=== PATIENT | female | born 1935 | race Caucasian/White ===

== ENCOUNTER 2022-09-08 16:05 | Inpatient (IN) | payer BC, MEDICARE ==
[2022-09-08 17:15] LABS: Basophils % (A) 0 %; Eosinophils # (A) 0.1 k/uL (0-0.7); Eosinophils % (A) 1 %; HCT 43.2 % (34.0-46.0); HGB 14.3 gm/dL (11.4-16.0); Lymphocytes # (A) 2.4 k/uL (1.0-4.8); Lymphocytes % (A) 44 %; MCH 30.7 pg (25.0-35.0); MCV 92.8 fL (80.0-100.0); Mean Platelet Volume 8.4; Monocytes # (A) 0.2 k/uL (0-1.0); Monocytes % (A) 5 %; Neutrophils # (A) 2.5 k/uL (1.3-7.7); Neutrophils % (A) 47 %; Platelet Count 166 k/uL (150-450); RBC 4.66 m/uL (3.80-5.40); RDW 12.8 % (11.5-15.5); WBC 5.3 k/uL (3.8-10.6)
--- NOTE | 2022-09-08 17:20 | XR ---
EXAMINATION TYPE: XR chest 2V DATE OF EXAM: 09/08/2022 5:08 PM COMPARISON: None TECHNIQUE: XR chest 2V Frontal and lateral views of the chest. CLINICAL INDICATION:Female, 87 years old with history of altered mental status; FINDINGS: Lungs/Pleura: There is flattening of the diaphragm with increased lucency of the lungs. No evidence o f pneumothorax, pleural effusion or focal consolidation. Pulmonary vascularity: Unremarkable. Heart/mediastinum: Cardiomediastinal silhouette is unremarkable. Musculoskeletal: No acute osseous pathology. IMPRESSION: 1. No acute cardiopulmonary disease process. 2. COPD changes.
[2022-09-08 17:21] LABS: ALT 31 U/L (4-34); AST 29 U/L (14-36); African American GFR (CKD) >90 (>60 ml/min/1.73 sqM); Albumin 4.9 g/dL (3.5-5.0); Alkaline Phosphatase 81 U/L (38-126); Anion Gap 10 mmol/L; Blood Urea Nitrogen 8 mg/dL (7-17); Calcium 9.6 mg/dL (8.4-10.2); Carbon Dioxide 23 mmol/L (22-30); Chloride 106 mmol/L (98-107); Glucose 118 mg/dL (74-99); Non-African American GFR(CKD) 86 (>60 ml/min/1.73 sqM); Potassium 4.5 mmol/L (3.5-5.1); Sodium 139 mmol/L (137-145); Total Protein 8.2 g/dL (6.3-8.2)
[2022-09-08 17:33] LABS: Glucose,Whole Blood 105 mg/dL (70-110)
--- NOTE | 2022-09-08 17:40 | CT ---
EXAMINATION TYPE: CT brain wo con CT DLP: 1099.4 mGycm, Automated exposure control for dose reduction was used. DATE OF EXAM: 09/08/2022 5:27 PM COMPARISON: None. CLINICAL INDICATION:Female, 87 years old with history of Altered mental status, AMS TECHNIQUE: Brain: Axial CT images of the brain were obtained with coronal and sagittal reformats created and rev iewed. Contrast used: None. Oral contrast used: None. FINDINGS: Brain: Extra-axial spaces: No abnormal extra-axial fluid collections. Ventricular system: Within normal limits Cerebral parenchyma: Left frontal lobe asymmetric white matter changes which which to pleura the bojorquez -white junction of the inferior left frontal lobe. No acute intraparenchymal hemorrhage or mass effec t. The remainder of the bojorquez-white junctions are well differentiated. Cerebellum: Unremarkable. Mass effect: No evidence of midline shift. Intracranial vasculature: Atherosclerotic calcifications of the intracranial vessels. Soft tissues: Normal. Calvarium/osseous structures: No depressed skull fracture. Paranasal sinuses and mastoid air cells: Mild scattered paranasal sinus disease. Visualized orbits: Orbital contents are intact. IMPRESSION: Acute/subacute left frontal lobe inferior CVA. No evidence for hemorrhagic conversion.
[2022-09-08 18:09] LABS: Appearance,Urine Clear (Clear); Bacteria,Urine Rare /hpf; Bilirubin,Urine Negative (Negative); Blood,Urine Negative (Negative); Color,Urine Colorless; Glucose,Urine (UA) Negative (Negative); Ketones,Urine Negative (Negative); Leukocyte Esterase,Urine Trace (Negative); Nitrite,Urine Negative (Negative); PH, Urine 5.5 (5.0-8.0); Protein,Urine Negative (Negative); RBC,Urine 1 /hpf (0-5); Specific Gravity,Urine 1.002 (1.001-1.035); Squamous Epithelial Cell,Urine <1 /hpf (0-4); Urobilinogen,Urine <2.0 mg/dL (<2.0); WBC,Urine 1 /hpf (0-5)
[2022-09-08] MEDS ORDERED: ASPIRIN 81 MG PO STA (19:08)
--- NOTE | 2022-09-08 19:19 | ED ---
Altered Mental Status HPI - General Chief Complaint: Altered Mental Status Stated Complaint: poss mini stroke/sent from doctors Time Seen by Provider: 09/08/22 16:28 Source: patient, family Mode of arrival: wheelchair Limitations: altered mental status - History of Present Illness Initial Comments: This patient is an 87-year-old woman here with her daughter, they state that she has going back about 4-5 days now been a little bit confused and sometimes having trouble with word finding, using the wrong word and a sentence. Patient denies focal weakness or numbness. No change in vision or speech or swallowing. Patient denies pain. No fever or chills. No other symptoms. MD Complaint: confusion Onset/Timin -: days(s) Severity: mild Consistency of Symptoms: waxing and waning Associated Symptoms: denies other symptoms - Related Data Home Medications Medication Instructions Recorded Confirmed Dorzolamide HCl/Pf [Dorzolamide 2% 1 drop BOTH EYES BID 09/08/22 09/08/22 Eye Drop] Latanoprost/Pf [Latanoprost 0.005% 1 drop BOTH EYES HS 09/08/22 09/08/22 Eye Drop] Metoprolol Succinate (ER) [Toprol 50 mg PO DAILY 09/08/22 09/08/22 Xl] Allergies Allergy/AdvReac Type Severity Reaction Status Date / Time No Known Allergies Allergy Verified 09/08/22 16:48 Review of Systems ROS Statement: Those systems with pertinent positive or pertinent negative responses have been documented in the HPI. ROS Other: All systems not noted in ROS Statement are negative. Constitutional: Denies: fever, chills, weakness Eyes: Denies: vision change ENT: Denies: hearing loss Respiratory: Denies: cough, dyspnea Cardiovascular: Denies: chest pain, palpitations, syncope Gastrointestinal: Denies: abdominal pain, nausea, vomiting, diarrhea Genitourinary: Denies: dysuria, hematuria Musculoskeletal: Denies: back pain Skin: Denies: rash Neurological: Reports: confusion. Denies: headache, weakness, numbness, paresthesias Hematological/Lymphatic: Denies: easy bleeding Past Medical History Past Medical History: Cancer, Hypertension History of Any Multi-Drug Resistant Organisms: None Reported Additional Past Surgical History / Comment(s): rt masectomy Past Psychological History: No Psychological Hx Reported Smoking Status: Never smoker Past Alcohol Use History: None Reported Past Drug Use History: None Reported General Exam Limitations: altered mental status General appearance: alert, in no apparent distress Head exam: Present: atraumatic, normocephalic Eye exam: Present: normal appearance, PERRL, EOMI. Absent: scleral icterus, conjunctival injection, nystagmus ENT exam: Present: normal oropharynx Neck exam: Present: normal inspection, full ROM. Absent: tenderness Respiratory exam: Present: normal lung sounds bilaterally. Absent: respiratory distress, wheezes, rales, rhonchi, stridor Cardiovascular Exam: Present: regular rate, normal rhythm, normal heart sounds. Absent: systolic murmur, diastolic murmur, rubs, gallop GI/Abdominal exam: Present: soft. Absent: distended, tenderness, guarding, rebound, rigid, mass Extremities exam: Present: normal inspection, normal capillary refill. Absent: pedal edema, calf tenderness Back exam: Present: normal inspection. Absent: CVA tenderness (R), CVA tenderness (L) Neurological exam: Present: alert, CN II-XII intact. Absent: oriented X3 (Patient is oriented to person and place but did not recall the exact date), motor sensory deficit Skin exam: Present: warm, dry, intact, normal color. Absent: rash Course Vital Signs 09/08/22 09/08/22 09/08/22 16:15 16:19 17:54 Temperature 98.0 F Pulse Rate 68 60 60 Respiratory 20 16 16 Rate Blood Pressure 189/87 195/103 185/92 O2 Sat by Pulse 98 98 97 Oximetry 09/08/22 09/08/22 09/08/22 18:00 19:00 20:00 Temperature Pulse Rate 63 68 62 Respiratory 18 20 16 Rate Blood Pressure 177/110 177/89 188/73 O2 Sat by Pulse 99 96 96 Oximetry 09/08/22 09/08/22 09/08/22 20:45 21:00 22:55 Temperature 97.9 F Pulse Rate 61 66 78 Respiratory 16 16 16 Rate Blood Pressure 188/73 188/73 189/74 O2 Sat by Pulse 97 97 98 Oximetry Medical Decision Making - Medical Decision Making Patient is an 87-year-old woman brought to have evaluation after a number of days of disorientation/confusion and difficulties with word finding. There does appear to be subacute/acute ischemic stroke. Patient will be admitted with neurology consultation. Patient is of course outside of the TPA window and no lesion on CT angiogram. - Lab Data Result diagrams: 09/08/22 16:55 09/08/22 16:55 Lab Results 09/08/22 09/08/22 09/08/22 Range/Units 16:55 16:55 16:55 WBC 5.3 (3.8-10.6) k/uL RBC 4.66 (3.80-5.40) m/uL Hgb 14.3 (11.4-16.0) gm/dL Hct 43.2 (34.0-46.0) % MCV 92.8 (80.0-100.0) fL MCH 30.7 (25.0-35.0) pg MCHC 33.0 (31.0-37.0) g/dL RDW 12.8 (11.5-15.5) % Plt Count 166 (150-450) k/uL MPV 8.4 Neutrophils % 47 % Lymphocytes % 44 % Monocytes % 5 % Eosinophils % 1 % Basophils % 0 % Neutrophils # 2.5 (1.3-7.7) k/uL Lymphocytes # 2.4 (1.0-4.8) k/uL Monocytes # 0.2 (0-1.0) k/uL Eosinophils # 0.1 (0-0.7) k/uL Basophils # 0.0 (0-0.2) k/uL Sodium 139 (137-145) mmol/L Potassium 4.5 (3.5-5.1) mmol/L Chloride 106 (98-107) mmol/L Carbon Dioxide 23 (22-30) mmol/L Anion Gap 10 mmol/L BUN 8 (7-17) mg/dL Creatinine 0.54 (0.52-1.04) mg/dL Est GFR (CKD-EPI)AfAm >90 (>60 ml/min/1.73 sqM) Est GFR (CKD-EPI)NonAf 86 (>60 ml/min/1.73 sqM) Glucose 118 H (74-99) mg/dL POC Glucose (mg/dL) (70-110) mg/dL POC Glu Hospital Ward Clerk ID Estimated Ave Glu mg/dL Hemoglobin A1c (0.0-6.0) % Calcium 9.6 (8.4-10.2) mg/dL Total Bilirubin 1.0 (0.2-1.3) mg/dL AST 29 (14-36) U/L ALT 31 (4-34) U/L Alkaline Phosphatase 81 (38-126) U/L Troponin I 0.047 H* (0.000-0.034) ng/mL Total Protein 8.2 (6.3-8.2) g/dL Albumin 4.9 (3.5-5.0) g/dL Triglycerides (0.00-149.00) mg/dL Cholesterol (0.00-200.00) mg/dL LDL Cholesterol, Calc (0.0-131.0) mg/dL VLDL Cholesterol, Calc (5.00-40.00) mg/dL HDL Cholesterol (40.00-60.00) mg/dL Cholesterol/HDL Ratio Ratio Urine Color Urine Appearance (Clear) Urine pH (5.0-8.0) Ur Specific Gifford (1.001-1.035) Urine Protein (Negative) Urine Glucose (UA) (Negative) Urine Ketones (Negative) Urine Blood (Negative) Urine Nitrite (Negative) Urine Bilirubin (Negative) Urine Urobilinogen (<2.0) mg/dL Ur Leukocyte Esterase (Negative) Urine RBC (0-5) /hpf Urine WBC (0-5) /hpf Ur Squamous Epith Cells (0-4) /hpf Urine Bacteria (None) /hpf 09/08/22 09/08/22 09/08/22 Range/Units 16:55 16:55 17:25 WBC (3.8-10.6) k/uL RBC (3.80-5.40) m/uL Hgb (11.4-16.0) gm/dL Hct (34.0-46.0) % MCV (80.0-100.0) fL MCH (25.0-35.0) pg MCHC (31.0-37.0) g/dL RDW (11.5-15.5) % Plt Count (150-450) k/uL MPV Neutrophils % % Lymphocytes % % Monocytes % % Eosinophils % % Basophils % % Neutrophils # (1.3-7.7) k/uL Lymphocytes # (1.0-4.8) k/uL Monocytes # (0-1.0) k/uL Eosinophils # (0-0.7) k/uL Basophils # (0-0.2) k/uL Sodium (137-145) mmol/L Potassium (3.5-5.1) mmol/L Chloride (98-107) mmol/L Carbon Dioxide (22-30) mmol/L Anion Gap mmol/L BUN (7-17) mg/dL Creatinine (0.52-1.04) mg/dL Est GFR (CKD-EPI)AfAm (>60 ml/min/1.73 sqM) Est GFR (CKD-EPI)NonAf (>60 ml/min/1.73 sqM) Glucose (74-99) mg/dL POC Glucose (mg/dL) 105 (70-110) mg/dL POC Glu [facility] Ward Clerk [place] [address] Est[address] Glu mg/dL 148 Hemoglobin A1c 6.8 H (0.0-6.0) % Calcium (8.4-10.2) mg/dL Total Bilirubin (0.2-1.3) mg/dL AST (14-36) U/L ALT (4-34) U/L Alkaline Phosphatase (38-126) U/L Troponin I (0.000-0.034) ng/mL Total Protein (6.3-8.2) g/dL Albumin (3.5-5.0) g/dL Triglycerides 107.00 (0.00-149.00) mg/dL Cholesterol 217.00 H (0.00-200.00) mg/dL LDL Cholesterol, Calc 149.4 H (0.0-131.0) mg/dL VLDL Cholesterol, Calc 21.40 (5.00-40.00) mg/dL HDL Cholesterol 46.20 (40.00-60.00) mg/dL Cholesterol/HDL Ratio 4.70 Ratio Urine Color Urine Appearance (Clear) Urine pH (5.0-8.0) Ur Specific Gifford (1.001-1.035) Urine Protein (Negative) Urine Glucose (UA) (Negative) Urine Ketones (Negative) Urine Blood (Negative) Urine Nitrite (Negative) Urine Bilirubin (Negative) Urine Urobilinogen (<2.0) mg/dL Ur Leukocyte Esterase (Negative) Urine RBC (0-5) /hpf Urine WBC (0-5) /hpf Ur Squamous Epith Cells (0-4) /hpf Urine Bacteria (None) /hpf 09/08/22 Range/Units 17:57 WBC (3.8-10.6) k/uL RBC (3.80-5.40) m/uL Hgb (11.4-16.0) gm/dL Hct (34.0-46.0) % MCV (80.0-100.0) fL MCH (25.0-35.0) pg MCHC (31.0-37.0) g/dL RDW (11.5-15.5) % Plt Count (150-450) k/uL MPV Neutrophils % % Lymphocytes % % Monocytes % % Eosinophils % % Basophils % % Neutrophils # (1.3-7.7) k/uL Lymphocytes # (1.0-4.8) k/uL Monocytes # (0-1.0) k/uL Eosinophils # (0-0.7) k/uL Basophils # (0-0.2) k/uL Sodium (137-145) mmol/L Potassium (3.5-5.1) mmol/L Chloride (98-107) mmol/L Carbon Dioxide (22-30) mmol/L Anion Gap mmol/L BUN (7-17) mg/dL Creatinine (0.52-1.04) mg/dL Est GFR (CKD-EPI)AfAm (>60 ml/min/1.73 sqM) Est GFR (CKD-EPI)NonAf (>60 ml/min/1.73 sqM) Glucose (74-99) mg/dL POC Glucose (mg/dL) (70-110) mg/dL POC Glu Hospital Ward Clerk ID Estimated Ave Glu mg/dL Hemoglobin A1c (0.0-6.0) % Calcium (8.4-10.2) mg/dL Total Bilirubin (0.2-1.3) mg/dL AST (14-36) U/L ALT (4-34) U/L Alkaline Phosphatase (38-126) U/L Troponin I (0.000-0.034) ng/mL Total Protein (6.3-8.2) g/dL Albumin (3.5-5.0) g/dL Triglycerides (0.00-149.00) mg/dL Cholesterol (0.00-200.00) mg/dL LDL Cholesterol, Calc (0.0-131.0) mg/dL VLDL Cholesterol, Calc (5.00-40.00) mg/dL HDL Cholesterol (40.00-60.00) mg/dL Cholesterol/HDL Ratio Ratio Urine Color Colorless Urine Appearance Clear (Clear) Urine pH 5.5 (5.0-8.0) Ur Specific Gifford 1.002 (1.001-1.035) Urine Protein Negative (Negative) Urine Glucose (UA) Negative (Negative) Urine Ketones Negative (Negative) Urine Blood Negative (Negative) Urine Nitrite Negative (Negative) Urine Bilirubin Negative (Negative) Urine Urobilinogen <2.0 (<2.0) mg/dL Ur Leukocyte Esterase Trace H (Negative) Urine RBC 1 (0-5) /hpf Urine WBC 1 (0-5) /hpf Ur Squamous Epith Cells <1 (0-4) /hpf Urine Bacteria Rare H (None) /hpf - EKG Data -: EKG Interpreted by Me EKG shows normal: sinus rhythm, axis (Normal), intervals (Normal), QRS complexes (Normal), ST-T waves (Normal) Rate: normal (Rate 61 bpm) Interpretation: normal EKG Critical Care Time Critical Care Time: Yes (30 minutes) Disposition Clinical Impression: Acute ischemic stroke Disposition: ADMITTED IP TO THIS HOSP Condition: Fair Is patient prescribed a controlled substance at d/c from ED?: No
--- NOTE | 2022-09-08 20:36 | CT ---
EXAMINATION TYPE: CT angio head neck CT DLP: 382.7 mGycm, Automated exposure control for dose reduction was used. DATE OF EXAM: 09/08/2022 8:20 PM COMPARISON: . CLINICAL INDICATION:Female, 87 years old with history of Neuro deficit, acute, stroke suspected; [facility], ams, sent by PCP TECHNIQUE: Axially acquired helical CT angiogram of the head and neck was obtained with contrast. Axi al images are supplemented with 3D reconstructions which [facility] NASCET criteria used. Contrast used:65ML mL of Isovue 370 with IV Contrast, Oral contrast used: None. FINDINGS: CTA HEAD: No evidence of acute intracranial hemorrhage, mass effect, or midline shift. The ventricles, sulci, a nd cisterns are unremarkable. The visualized portions of the internal carotid arteries, middle cerebral arteries, anterior cerebral arteries, and posterior cerebral arteries are patent. Atherosclerotic calcified lesions of the intracranial or internal carotid arteries. The basilar and vertebral arteries are patent. Bilaterally aphakia CTA NECK: Right Carotid System: The common carotid artery and external carotid artery are patent. The carotid bifurcation demonstrate s calcified plaque without hemodynamically significant stenosis. The remaining portions of the commercial internship al carotid artery demonstrate normal size without significant narrowing. Left Carotid System: The common carotid artery and external carotid artery are patent. The carotid bifurcation demonstrate s calcified plaque without hemodynamically significant stenosis. The remaining portions of the commercial internship al carotid artery demonstrate normal size without significant narrowing. Vertebral arteries are patent without evidence hemodynamically significant stenosis. There is a three-vessel aortic arch. The origins of the great vessels are patent. No evidence of hemo dynamically significant stenosis. IMPRESSION: 1. No evidence of dissection of the cervical internal carotid arteries or vertebral arteries or any e vidence of significant stenosis at the carotid bifurcations. 2. No evidence of intracranial high-grade stenosis or intracranial aneurysm.
[2022-09-08] MEDS: SODIUM CHLORIDE 0.9% 1,000 ML IV SCH (21:23)
[2022-09-08] MEDS: FAMOTIDINE 20 MG TAB PO SCH (21:23)
[2022-09-08] MEDS: DOCUSATE 100 MG CAP PO SCH (23:35)
[2022-09-08 23:37] LABS: Glucose,Whole Blood 98 mg/dL (70-110)
[2022-09-09 01:58] LABS: Glucose,Whole Blood 114 mg/dL (70-110)
[2022-09-09 06:04] LABS: Glucose,Whole Blood 124 mg/dL (70-110)
[2022-09-09] MEDS ORDERED: DEXTROSE 50% SYRINGE 50 ML IVP PRN ×2 (08:42)
[2022-09-09 08:53] LABS: LDL Cholesterol,Calculated 149.4 mg/dL (0.0-131.0)
[2022-09-09] MEDS: FAMOTIDINE 20 MG TAB PO SCH ×2 (09:34→21:04)
[2022-09-09] MEDS: DOCUSATE 100 MG CAP PO SCH ×3 (09:34→23:58)
[2022-09-09] MEDS: PANTOPRAZOLE 40 MG/10 ML VIAL IVP SCH (09:34)
[2022-09-09] MEDS: CLOPIDOGREL 75 MG TAB PO SCH (09:34)
[2022-09-09] MEDS: ATORVASTATIN 40 MG TAB PO SCH (09:34)
--- NOTE | 2022-09-09 10:48 | P.HPIM ---
History of Present Illness H&P Date: 09/09/22 Chief Complaint: Increased confusion, word searching This is a pleasant 87-year-old female with past medical history of hypertension, minimal memory impairment ,reporting nearly diagnosed hypercholesterol and diabetes diet managed-in June 2022, presented to the ER with complaints of increased confusion, word searching over the last few days. Denies prior history of CVA/TIA. Denies any slurred speech, facial droop or muscle weakness. Denies numbness or tingling. Denies lightheadedness dizziness or focal deficits. Denies syncope. Denies chest pain, palpitations or shortness of breath. Yesterday, urine sample at PCP's reported as negative. Patient presented to the ER for further workup. Brain CT reported acute/subacute left frontal lobe inferior CVA with no evidence for hemorrhagic conversion. Patient was outside the window for TPA. Angiography CT reported no evidence of dissection of the cervical internal carotid arteries are 2 arteries or any evidence of significant stenosis of the carotid bifurcations, no evidence of intracranial high-grade stenosis or intracranial aneurysm. Chest x-ray report no acute cardiopulmonary process, COPD changes. Patient denies history of nicotine dependence. EKG reported sinus rhythm, troponins 0.047, 0.048, 0.045. Afebrile, maintaining O2 sats in the high 90s on room air. Hematology, chemistry panels unremarkable with glucose 118-124, triglycerides 107, cholesterol 217, LDL 149.4, HDL 46.2. UA negative. Review of Systems ROS Statement: Those systems with pertinent positive or pertinent negative responses have been documented in the HPI. ROS Other: All systems not noted in ROS Statement are negative. Past Medical History Past Medical History: Cancer, Hypertension History of Any Multi-Drug Resistant Organisms: None Reported Additional Past Surgical History / Comment(s): rt masectomy Past Anesthesia/Blood Transfusion Reactions: No Reported Reaction Past Psychological History: No Psychological Hx Reported Smoking Status: Never smoker Past Alcohol Use History: None Reported Past Drug Use History: None Reported Medications and Allergies Home Medications Medication Instructions Recorded Confirmed Type Dorzolamide HCl/Pf [Dorzolamide 2% 1 drop BOTH EYES BID 09/08/22 09/08/22 History Eye Drop] Latanoprost/Pf [Latanoprost 0.005% 1 drop BOTH EYES HS 09/08/22 09/08/22 History Eye Drop] Metoprolol Succinate (ER) [Toprol 50 mg PO DAILY 09/08/22 09/08/22 History Xl] Allergies Allergy/AdvReac Type Severity Reaction Status Date / Time No Known Allergies Allergy Verified 09/08/22 16:48 Physical Exam Vitals: Vital Signs Temp Pulse Pulse Resp BP BP Pulse Ox 09/09/22 03:28 97.6 F 68 16 132/78 98 09/08/22 23:36 97.4 F L 63 16 176/85 97 09/08/22 23:20 16 09/08/22 22:55 78 16 189/74 98 09/08/22 21:00 66 16 188/73 97 09/08/22 20:45 97.9 F 61 16 188/73 97 09/08/22 20:00 62 16 188/73 96 09/08/22 19:00 68 20 177/89 96 09/08/22 18:00 63 18 177/110 99 09/08/22 17:54 60 16 185/92 97 09/08/22 16:19 60 16 195/103 98 09/08/22 16:15 98.0 F 68 20 189/87 98 Intake and Output 09/08/22 09/09/22 09/09/22 22:59 06:59 14:59 Other: Voiding Method Toilet Weight 68.039 kg 69 kg PHYSICAL EXAM: VITAL SIGNS: [As above] GENERAL: Sitting up at side of bed, no acute distress. Minimally conversing. Daughter at bedside giving full details. HEENT: Conjunctivae normal. eyes normal. MMM. NECK: Supple, No JVD. No thyroid enlargement. No LNs CARDIOVASCULAR: S1, S2 regular.. No murmur RESPIRATION: Breath sounds diminished in the bases. No rhonchi or crackles. No bronchial breathing. ABDOMEN: Soft, nontender . No guarding. no masses palpable. No ascites, No hepatosplenomegaly.Bowel sounds heard. LEGS: No edema. no swelling PSYCHIATRY: Alert and oriented X3, mood and affect normal. NERVOUS SYSTEM: Cranial N 2-12 grossly normal. Moves all 4 limbs. No focal deficits. No facial droop, no lateralizing weakness .Strength and sensation grossly intact.. Skin: no lesions, no rash Joints: No active swelling. No inflammation. Lymphatic system. No LN neck axilla or groin. Results CBC & Chem 7: 09/08/22 16:55 09/08/22 16:55 Labs: Abnormal Lab Results - Last 24 Hours (Table) 09/08/22 09/08/22 09/08/22 Range/Units 16:55 16:55 17:57 Glucose 118 H (74-99) mg/dL POC Glucose (mg/dL) (70-110) mg/dL Troponin I 0.047 H* (0.000-0.034) ng/mL Ur Leukocyte Esterase Trace H (Negative) Urine Bacteria Rare H (None) /hpf 09/08/22 09/09/22 09/09/22 Range/Units 22:00 00:01 01:56 Glucose (74-99) mg/dL POC Glucose (mg/dL) 114 H (70-110) mg/dL Troponin I 0.048 H* 0.045 H* (0.000-0.034) ng/mL Ur Leukocyte Esterase (Negative) Urine Bacteria (None) /hpf 09/09/22 Range/Units 06:02 Glucose (74-99) mg/dL POC Glucose (mg/dL) 124 H (70-110) mg/dL Troponin I (0.000-0.034) ng/mL Ur Leukocyte Esterase (Negative) Urine Bacteria (None) /hpf Thrombosis Risk Factor Assmnt - Choose All That Apply Any of the Below Risk Factors Present?: No Other congenital or acquired thrombophilia - If yes, enter type in comment: No Each Risk Factor Represents 5 Points: Stroke (< 1 month) Thrombosis Risk Factor Assessment Total Risk Factor Score: 5 Thrombosis Risk Factor Assessment Level: High Risk Assessment and Plan Assessment: 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 Hypertension Hyperlipidemia Diabetes mellitus reported new diagnosis as of June 2022, controlled on diet only. A1c pending Plan: Continue on current medication regime ,monitoring and symptomatic treatment. Maintain aspirin, statin, Plavix. PPI ordered for GI prophylaxis. Neurology consult in place, recommendations pending. NovoLog sliding scale, A1c ordered. The impression and plan of care has been dictated as directed. : I performed a history and examination of this patient, discussed the same with the dictator. I agree with the dictator's note ,documented as a scribe. Any additional findings or plans will be noted.
[2022-09-09] MEDS: DORZOLAMIDE HCL 2% DROPS 10 ML BTL BOTH EYES SCH ×2 (10:50→21:04)
[2022-09-09 11:51] LABS: Glucose,Whole Blood 151 mg/dL (70-110)
--- NOTE | 2022-09-09 14:24 | P.CNNES ---
History of Present Illness Consult date: 09/09/22 Requesting physician: Geovany Camp Reason for Consult: Acute ischemic stroke History of Present Illness: Patient is a 87-year-old right-handed female came to the hospital yesterday at 4:05 PM for altered mental status. Patient's daughters were present, who provided the history. Patient herself does not know why she came to the hospital. Patient's daughter mentions that since last 3 days, patient has been seeing something which is not right. As an example, patient wanted to eat peanut butter, but instead she said mustard. She had slow reaction time to answer question, not as quick as usual. The family asked about who was at present, patient said "Keli" which is completely incorrect. She also said something about a total, which is out of this is 4 years. Family got concerned, talk to her primary physician, who thought patient may have a UTI. A urine was checked, but that was normal. Therefore she was referred to go to the ER. There is no report of slurred speech, facial droop, problem with the balance. She does walk with a stooped, but his baseline. She does not use any assistive device. Patient denies any visual symptoms. Denies any focal symptoms involving extremities like numbness tingling or weakness. Denies any headache. No trauma. Vital signs on arrival blood pressure 189/87, which went up to 195/103, pulse rate is 68 temperature 98.0. Blood test shows normal CBC, normal CMP, troponin is elevated 0.047, UA is negative. CT head revealed acute/subacute left frontal lobe inferior CVA. No evidence of hemorrhagic conversion. I personally reviewed CT head, agree with the findings. The significant small vessel disease. Left frontal hypointensity probably due to subacute ischemia, although mass lesion less likely. Chest x-ray showed no active cardio pulmonary disease. COPD changes. Patient has history of hypertension, recently diagnosed diabetes in June 2022, but not on medication. No previous history of strokes or TIA. She does not smoke, does not drink alcohol. Home medications include eyedrops and metoprolol for blood pressure only. Does not take any antiplatelet medication. Patient admits to weight loss 10 pounds, intentionally. Patient has slight urinary incontinence, uses pads sometimes. Her memory otherwise is fine, with no concerned about dementia. Her hearing is decreased. Review of Systems Constitutional: Denies chills, Denies fever Eyes: denies blurred vision, denies pain Ears: bilateral: decreased hearing, deny: earache Ears, nose, mouth and throat: Denies headache, Denies sore throat Cardiovascular: Denies chest pain, Denies shortness of breath Respiratory: Denies cough, Denies excessive sputum Gastrointestinal: Denies abdominal pain, Denies diarrhea, Denies nausea, Denies vomiting Genitourinary: Reports stress incontinence, Denies dysuria, Denies hematuria Musculoskeletal: Denies low back pain, Denies myalgias, Denies neck pain Integumentary: Denies pruritus, Denies rash Neurological: Reports as per HPI Psychiatric: Denies anxiety, Denies depression Endocrine: Reports weight change, Denies fatigue Past Medical History Past Medical History: Cancer, Hypertension History of Any Multi-Drug Resistant Organisms: None Reported Additional Past Surgical History / Comment(s): rt masectomy Past Anesthesia/Blood Transfusion Reactions: No Reported Reaction Past Psychological History: No Psychological Hx Reported Smoking Status: Never smoker Past Alcohol Use History: None Reported Past Drug Use History: None Reported Medications and Allergies Home Medications Medication Instructions Recorded Confirmed Type Dorzolamide HCl/Pf [Dorzolamide 2% 1 drop BOTH EYES BID 09/08/22 09/08/22 History Eye Drop] Latanoprost/Pf [Latanoprost 0.005% 1 drop BOTH EYES HS 09/08/22 09/08/22 History Eye Drop] Metoprolol Succinate (ER) [Toprol 50 mg PO DAILY 09/08/22 09/08/22 History Xl] Allergies Allergy/AdvReac Type Severity Reaction Status Date / Time No Known Allergies Allergy Verified 09/08/22 16:48 Physical Examination - Vital Signs Vital Signs: Vital Signs Temp Pulse Pulse Resp BP BP Pulse Ox 09/09/22 09:02 96 09/09/22 03:28 97.6 F 68 16 132/78 98 09/08/22 23:36 97.4 F L 63 16 176/85 97 09/08/22 23:20 16 09/08/22 22:55 78 16 189/74 98 09/08/22 21:00 66 16 188/73 97 09/08/22 20:45 97.9 F 61 16 188/73 97 09/08/22 20:00 62 16 188/73 96 09/08/22 19:00 68 20 177/89 96 09/08/22 18:00 63 18 177/110 99 09/08/22 17:54 60 16 185/92 97 09/08/22 16:19 60 16 195/103 98 09/08/22 16:15 98.0 F 68 20 189/87 98 Intake and Output 09/08/22 09/09/22 09/09/22 22:59 06:59 14:59 Intake Total 240 Balance 240 Intake: Oral 240 Other: Voiding Method Toilet Weight 68.039 kg 69 kg Patient is an elderly female, very pleasant, in no acute distress. Patient is alert awake oriented to time place and person. Speech and language functions are normal. Patient can name and repeat very well. No aphasia or dysarthria. Attention, concentration and fund of knowledge is adequate. On cranial nerve examination, pupils are equal, round and reacting to light, visual mendez are full on confrontation, with no neglect on double simultaneous stimulation. Extraocular muscles are intact with no nystagmus. Face is symmetric, tongue protrudes to the midline. Palatal elevation and sensation normal, hearing and shoulder shrug normal, facial sensation normal. On muscle strength testing, there is no pronator drift and the strength is normal in arms and legs distally and proximally. Deep tendon reflexes are symmetric 1+ all over and plantars downgoing bilaterally. Sensory to touch is equal with no neglect on double simultaneous stimulation. Cerebellar function showed no ataxia for [id number] testing. No dysdiadochokinesia. No ataxia for [id number]-[id number] testing on either side. Tone a nd bulk of muscles normal. Gait deferred.. On general examination, there is no carotid bruit or murmur, S1-S2 audible. Chest is clear on consultation. Abdomen is soft nontender. No organomegaly, bowel sounds present. Peripheral pulses are present. No edema. Results - Laboratory Findings CBC and BMP: 09/08/22 16:55 09/08/22 16:55 Abnormal Lab Findings: Abnormal Labs 09/08/22 09/08/22 09/08/22 16:55 16:55 16:55 Glucose 118 H POC Glucose (mg/dL) Troponin I 0.047 H* Cholesterol 217.00 H LDL Cholesterol, Calc 149.4 H Ur Leukocyte Esterase Urine Bacteria 09/08/22 09/08/22 09/09/22 17:57 22:00 00:01 Glucose POC Glucose (mg/dL) Troponin I 0.048 H* 0.045 H* Cholesterol LDL Cholesterol, Calc Ur Leukocyte Esterase Trace H Urine Bacteria Rare H 09/09/22 09/09/22 01:56 06:02 Glucose POC Glucose (mg/dL) 114 H 124 H Troponin I Cholesterol LDL Cholesterol, Calc Ur Leukocyte Esterase Urine Bacteria Assessment and Plan Assessment: * Probable subacute ischemic stroke involving left frontal region. * Hypertension * Diabetes, recently diagnosed in June 2022, currently not on medication * Hyperlipidemia Plan: * MRI of the brain without contrast, evaluate for acute CVA * 2-D echo with bubble study to rule out PFO * CTA head and neck showed: No evidence of dissection of the cervical internal carotid arteries or vertebral arteries or any evidence of significant stenosis at the carotid bifurcations. No evidence of intracranial high-grade stenosis or intracranial aneurysm. * Fasting a.m. lipid panel cholesterol 217, LDL 149, HDL 46 and triglycerides 107. Agree with starting Lipitor 40 mg daily. * Hemoglobin A1c 7.8 on 07/02/2022. Patient currently not on any medication for diabetes. Repeat A1c pending. Recommend optimize control of diabetes to target A1c <7.0 * Permissive hypertension for next 24-48 hours * Agree with starting DAP with aspirin 81 mg and Plavix 75 mg for 21 days, then stop Plavix and continue aspirin indefinitely. Patient did receive aspirin 324 mg in ER. * Close neuro checks. * Telemetry monitoring rule out any arrhythmia * DVT prophylaxis: Heparin 5000 units subcu every 8 hours * Neurology will continue ot follow. Thank you for the consult.
[2022-09-09] MEDS: INSULIN ASPART (NovoLOG) 100 UNIT/ML VIAL SQ SCH ×3 (15:44→21:04)
[2022-09-09 16:27] LABS: Glucose,Whole Blood 138 mg/dL (70-110)
[2022-09-09 20:20] LABS: Glucose,Whole Blood 154 mg/dL (70-110)
[2022-09-09] MEDS: SODIUM CHLORIDE 0.9% 1,000 ML IV SCH (21:03)
[2022-09-09] MEDS: LATANOPROST 0.005% OPHTH DROPS 2.5 ML BTL BOTH EYES SCH (21:04)
[2022-09-10 06:11] LABS: Glucose,Whole Blood 144 mg/dL (70-110)
[2022-09-10] MEDS: INSULIN ASPART (NovoLOG) 100 UNIT/ML VIAL SQ SCH ×4 (06:18→21:15)
[2022-09-10] MEDS: FAMOTIDINE 20 MG TAB PO SCH ×2 (08:35→21:15)
[2022-09-10] MEDS: CLOPIDOGREL 75 MG TAB PO SCH (08:35)
[2022-09-10] MEDS: PANTOPRAZOLE 40 MG/10 ML VIAL IVP SCH (08:35)
[2022-09-10] MEDS: ATORVASTATIN 40 MG TAB PO SCH (08:35)
[2022-09-10] MEDS ORDERED: ASPIRIN 81 MG PO SCH (09:00)
--- NOTE | 2022-09-10 11:16 | MR ---
EXAMINATION TYPE: MR brain wo con DATE OF EXAM: 09/10/2022 COMPARISON: CT brain 2 days ago HISTORY: CVA. Acute onset neurologic deficit 2 days ago. TECHNIQUE: Multiplanar, multisequence imaging of the brain and brainstem is performed without IV cont rast. FINDINGS: Diffusion weighted images demonstrate increased signal on diffusion-weighted images being isodense to hypodense and ADC mapping involving the left frontal lobe that area of concern on recent CT measurin g approximate 3.1 x 1.9 cm image 144 series 303. There is sulcal effacement and T2 hyperintense signa l. Findings correlate with CT and consistent with evolving acute/subacute infarct. No midline shift i s seen. There is mild to moderate ventricular and sulcal prominence. There is moderate to severe T2 hyperinte nsity in the deep and periventricular white matter. Midline structures demonstrate empty sella morphology. The craniocervical junction appears within no rmal limits. Normal vascular flow voids are present. Bilateral aphakia is redemonstrated. Visualized paranasal sinuses remain clear. IMPRESSION: Confirmation of evolving acute/subacute left frontal lobe infarct as suspected on recent CT. Background [id number] diffuse cerebral atrophy and moderate to advanced chronic small vesse l ischemic changes are noted. A Yellow level critical message alert has been initiated for Delio Garcia DO via the [facility] System on 09/10/2022 11:13 AM. This message alert has been sent to Delio Garcia DO vi a the preferences provided by the clinician for the receipt of Radiology Critical Findings. Message I D [id number].
--- NOTE | 2022-09-10 11:51 | CA ---
Transthoracic Echo Report Name: Leonora Chen Age: 87 Gender: F : 1935 Exam Date: 09/09/2022 14:15 Exam Location: [facility] Ht (in): 60 Wt (lb): 152 Ordering Physician: Hue Goss MD Attending/Referring Phys: Hob Grinder Preeti Gerardo RDCS Procedure CPT: Indications: CVA Cardiac Hx: Technical Quality: Contrast 1: Total Dose (mL): Contrast 2: Total Dose (mL): MEASUREMENTS (Male / Female) Normal Values 2D ECHO LV Diastolic Diameter PLAX 2.7 cm 4.2 - 5.9 / 3.9 - 5.3 cm LV Systolic Diameter PLAX 1.8 cm IVS Diastolic Thickness 1.4 cm 0.6 - 1.0 / 0.6 - 0.9 cm LVPW Diastolic Thickness 1.1 cm 0.6 - 1.0 / 0.6 - 0.9 cm LV Relative Wall Thickness 0.9 RV Internal Dim ED PLAX 3.4 cm LVOT Diameter 1.3 cm LA Volume 78.2 cm??? 18 - 58 / 22 - 52 cm??? DOPPLER AV Peak Velocity 181.1 cm/s AV Peak Gradient 13.1 mmHg AV Mean Velocity 134.4 cm/s AV Mean Gradient 7.9 mmHg AV Velocity Time Integral 43.1 cm AI Peak Velocity 354.6 cm/s AI Peak Gradient 50.3 mmHg AI Pressure Half Time 439.3 ms LVOT Peak Velocity 109.8 cm/s LVOT Peak Gradient 4.8 mmHg LVOT Velocity Time Integral 24.9 cm LVOT Stroke Volume 33.3 cm??? LVOT Stroke Volume Index 20.1 ml/m??? AV Area Cont Eq vti 0.8 cm??? AV Area Cont Eq pk 0.8 cm??? MV Peak Velocity 134.5 cm/s MV Peak Gradient 7.2 mmHg MV Mean Velocity 84.0 cm/s MV Mean Gradient 3.2 mmHg MV Velocity Time Integral 40.9 cm MV Area PHT 2.6 cm??? Mitral E Point Velocity 82.5 cm/s Mitral A Point Velocity 110.5 cm/s Mitral E to A Ratio 0.7 MV Deceleration Time 290.2 ms MV E' Velocity 5.8 cm/s Mitral E to MV E' Ratio 14.2 TR Peak Velocity 177.2 cm/s TR Peak Gradient 12.6 mmHg Right Ventricular Systolic Press 16.9 mmHg FINDINGS Left Ventricle Moderately increased left ventricular wall thickness. Left ventricular cavity size normal. Normal left ventricular systolic function with no obvious regional wall motion abnormalities. Left ventricular ejection fraction is estimated at 55-60 %. Right Ventricle Normal right ventricular size and function. Right ventricular systolic pressure within normal limits. Right Atrium Normal right atrial size. Negative agitated saline bubble study for right to left shunt. Left Atrium Severely increased left atrial volume. Mildly increased left atrial area. Mitral Valve Mitral valve thickened. Mild mitral annular calcification. Mild mitral stenosis. [id number] mitral regurgitation. Aortic Valve Trileaflet aortic valve. Diffuse thickening (sclerosis) of the aortic valve cusps without reduced excursion. Aortic valve sclerosis. Mild aortic regurgitation. Tricuspid Valve Structurally normal tricuspid valve. Mild tricuspid regurgitation. Pulmonic Valve Trace pulmonic regurgitation. Pericardium No pericardial effusion. Aorta Normal size aortic root and proximal ascending aorta. CONCLUSIONS Normal systolic function. Concentric LVH. Aortic sclerosis with no stenosis and mild insufficiency. The aortic valve poorly visualized Thickened mitral valve leaflets with mild to moderate mitral regurgitation Previewed by: Dr. Zuhair Bermudez MD (Electronically Signed) Final Date: 10 September 2022 11:50
[2022-09-10 12:08] LABS: Glucose,Whole Blood 150 mg/dL (70-110)
[2022-09-10] MEDS: DOCUSATE 100 MG CAP PO SCH ×3 (12:16→23:23)
[2022-09-10 17:15] LABS: Glucose,Whole Blood 142 mg/dL (70-110)
[2022-09-10] MEDS: DORZOLAMIDE HCL 2% DROPS 10 ML BTL BOTH EYES SCH ×2 (17:33→21:15)
[2022-09-10 20:25] LABS: Glucose,Whole Blood 181 mg/dL (70-110)
[2022-09-10] MEDS: SODIUM CHLORIDE 0.9% 1,000 ML IV SCH (21:08)
[2022-09-10] MEDS: LATANOPROST 0.005% OPHTH DROPS 2.5 ML BTL BOTH EYES SCH (21:16)
--- NOTE | 2022-09-11 00:09 | P.PN ---
Subjective Progress Note Date: 09/10/22 Chief Complaint: Increased confusion, word searching This is a pleasant 87-year-old female with past medical history of hypertension, minimal memory impairment ,reporting nearly diagnosed hypercholesterol and diabetes diet managed-in June 2022, presented to the ER with complaints of increased confusion, word searching over the last few days. Denies prior history of CVA/TIA. Denies any slurred speech, facial droop or muscle weakness. Denies numbness or tingling. Denies lightheadedness dizziness or focal deficits. Denies syncope. Denies chest pain, palpitations or shortness of breath. Yesterday, urine sample at PCP's reported as negative. Patient presented to the ER for further workup. Brain CT reported acute/subacute left frontal lobe inferior CVA with no evidence for hemorrhagic conversion. Patient was outside the window for TPA. Angiography CT reported no evidence of dissection of the cervical internal carotid arteries are 2 arteries or any evidence of significant stenosis of the carotid bifurcations, no evidence of intracranial high-grade stenosis or intracranial aneurysm. Chest x-ray report no acute cardiopulmonary process, COPD changes. Patient denies history of nicotine dependence. EKG reported sinus rhythm, troponins 0.047, 0.048, 0.045. Afebrile, maintaining O2 sats in the high 90s on room air. Hematology, chemistry panels unremarkable with glucose 118-124, triglycerides 107, cholesterol 217, LDL 149.4, HDL 46.2. UA negative. 09/10/2022 Patient is seen and evaluated in follow-up today with daughters at the bedside with neurology following closely with plans for MRI of the brain today. Per nursing staff patient also having atrial fibrillation which is new for her and will consult cardiology. Neurology recommending cardiology consultation as well. Patient is afebrile reports to feeling well and improved with reports of worsening neurological status. Patient is up walking with a steady gait and requesting when she can go home. Patient is afebrile with no reports of chest pain or shortness of breath noted. Patient denies palpitations. Review of systems: Constitutional: No reports of fatigue, fever, or chills Cardiovascular: No reports of chest pain or palpitations Respiratory: No reports of shortness of breath or cough GI: No reports of nausea, vomiting, or diarrhea : No reports of dysuria or retention Neurovascular: No reports of weakness or numbness All medications have been reviewed Active Medications Aspirin (Aspirin 81 Mg) 81 mg PO DAILY [facility] Last Admin: 09/10/22 08:35 Dose: 81 mg Atorvastatin Calcium (Atorvastatin 40 Mg Tab) 40 mg PO DAILY [facility] Last Admin: 09/10/22 08:35 Dose: 40 mg Clopidogrel Bisulfate (Clopidogrel 75 Mg Tab) 75 mg PO DAILY [facility] Last Admin: 09/10/22 08:35 Dose: 75 mg Dextrose/Water (Dextrose 50% Syringe 50 Ml) 25 ml IVP PER PROTOCOL PRN; Protocol PRN Reason: Hypoglycemia Dextrose/Water (Dextrose 50% Syringe 50 Ml) 50 ml IVP PER PROTOCOL PRN; Protocol PRN Reason: Hypoglycemia Docusate Sodium (Docusate 100 Mg Cap) 100 mg PO Q8HR [facility] Last Admin: 09/10/22 23:23 Dose: 100 mg Dorzolamide HCl (Dorzolamide Hcl 2% Drops 10 Ml Btl) 1 drops BOTH EYES BID [facility] Last Admin: 09/10/22 21:15 Dose: 1 drops Famotidine (Famotidine 20 Mg Tab) 20 mg PO BID [facility] Last Admin: 09/10/22 21:15 Dose: 20 mg Sodium Chloride (Saline 0.9%) 1,000 mls @ 20 mls/hr IV .Q24H [facility] Last Admin: 09/10/22 21:08 Dose: Not Given Insulin Aspart (Insulin Aspart (Novolog) 100 Unit/Ml Vial) 0 unit SQ ACHS [facility]; Protocol Last Admin: 09/10/22 21:15 Dose: 1 unit Latanoprost (Latanoprost 0.005% Ophth Drops 2.5 Ml Btl) 1 drops BOTH EYES HS [facility] Last Admin: 09/10/22 21:16 Dose: 1 drops Pantoprazole Sodium (Pantoprazole 40 Mg/10 Ml Vial) 40 mg IVP DAILY [facility] Last Admin: 09/10/22 08:35 Dose: 40 mg Physical exam: Gen: This is a 87-year-old female who is awake, alert and oriented 2, well- developed, well-nourished HEENT: Head is atraumatic, normocephalic. Pupils equal, round. Sclerae is anicteric. NECK: Supple. No JVD. No lymphadenopathy. No thyromegaly. LUNGS: Clear to auscultation. No wheezes or rhonchi. No intercostal retracti ons. HEART: S1, S2 are muffled ABDOMEN: Soft. Bowel sounds are present. No masses. No tenderness. EXTREMITIES: No pedal edema. No calf tenderness. NEUROLOGICAL: Patient is awake, alert and oriented x2. Cranial nerves 2 through 12 are grossly intact. No focal deficits noted. Assessment: 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 Hypertension Hyperlipidemia Diabetes mellitus reported new diagnosis as of June 2022, controlled on diet only. A1c pending GI prophylaxis, DVT prophylaxis Plan: Continue on current medication regimen with neurology following. Patient had MRI of the brain confirming CVA and also having some abnormal findings on echo Neurology following closely recommending cardiology consultation for possible RK Nursing staff notified patient was in atrial fibrillation which is new and will consult cardiology Recommend telemetry monitoring Due to multiple complex medical issues, prognosis is guarded The impression and plan of care has been dictated by Lashanda Ruiz, Nurse Practitioner as directed. Dr. Dannie MD I have performed a history and examination and MDM of this patient, discussed the same with the dictator, and agree with the dictator's assessment and plan as written ,documented as a scribe. Based on total visit time, I have performed more than 50% of the visit. Objective - Vital Signs Vital signs: Vital Signs Temp 97.9 F 09/10/22 08:00 Pulse 78 09/10/22 08:00 Resp 16 09/10/22 08:00 BP 166/85 09/10/22 08:00 Pulse Ox 97 09/10/22 08:56 FiO2 Intake & Output 09/09/22 09/10/22 09/10/22 18:59 06:59 18:59 Intake Total 936 20 540 Output Total 118 Balance 936 -98 540 Weight 69 kg Intake: IV 20 Invasive Line 2 20 Oral 936 540 Output: Urine 118 Other: Voiding Method Toilet Toilet Toilet # Voids 4 1 # Bowel Movements 1 - Labs CBC & Chem 7: 09/08/22 16:55 09/08/22 16:55 Labs: Abnormal Lab Results - Last 24 Hours (Table) 09/08/22 09/09/22 09/09/22 Range/Units 16:55 16:24 20:18 POC Glucose (mg/dL) 138 H 154 H (70-110) mg/dL Hemoglobin A1c 6.8 H (0.0-6.0) % 09/10/22 09/10/22 Range/Units 06:09 12:06 POC Glucose (mg/dL) 144 H 150 H (70-110) mg/dL Hemoglobin A1c (0.0-6.0) %
[2022-09-11 06:42] LABS: Glucose,Whole Blood 152 mg/dL (70-110)
[2022-09-11] MEDS: INSULIN ASPART (NovoLOG) 100 UNIT/ML VIAL SQ SCH (07:09)
--- NOTE | 2022-09-11 07:19 | P.CRDCN ---
History of Present Illness Consult date: 09/11/22 Chief complaint: Change in mental status History of present illness: The patient is a pleasant 87-year-old female patient with a past medical history significant for diabetes and hypertension and dyslipidemia and mild underlying dementia who was brought by her daughter to the hospital for some change in mental status as well as slurred speech concerning for TIA/CVA. Further investigation was performed including computed tomography scan and that showed possible acute stroke. The patient was seen and evaluated by the neurology service. Subsequently she was diagnosed with stroke and she was placed on dual antiplatelet therapy. During her hospital stay she went into an atrial fibrillation and converted back to normal sinus mechanism. No history of A. fib before. No symptoms of chest pain or chest discomfort or shortness of breath a nd no dizziness or lightheadedness and no presyncope or syncope. The EKG showed atrial fibrillation with controlled heart rate. Currently the patient back in sinus mechanism. The examination is remarkable for stable vital signs with regular rhythm and a clear breathing sounds bilaterally and no carotid bruit or lower extremity edema noted. Assessment TIA/CVA Paroxysmal atrial fibrillation Hypertension Dyslipidemia Diabetes Plan Increase the dose of metoprolol to keep the patient in sinus mechanism Consider starting the patient on oral anticoagulation The echo revealed normal LV function Follow-up with the patient Past Medical History Past Medical History: Cancer, Hypertension History of Any Multi-Drug Resistant Organisms: None Reported Additional Past Surgical History / Comment(s): rt masectomy Past Anesthesia/Blood Transfusion Reactions: No Reported Reaction Past Psychological History: No Psychological Hx Reported Smoking Status: Never smoker Past Alcohol Use History: None Reported Past Drug Use History: None Reported Medications and Allergies Home Medications Medication Instructions Recorded Confirmed Type Dorzolamide HCl/Pf [Dorzolamide 2% 1 drop BOTH EYES BID 09/08/22 09/08/22 History Eye Drop] Latanoprost/Pf [Latanoprost 0.005% 1 drop BOTH EYES HS 09/08/22 09/08/22 History Eye Drop] Metoprolol Succinate (ER) [Toprol 50 mg PO DAILY 09/08/22 09/08/22 History Xl] Allergies Allergy/AdvReac Type Severity Reaction Status Date / Time No Known Allergies Allergy Verified 09/08/22 16:48 Physical Exam Vitals: Vital Signs Temp Pulse Resp BP Pulse Ox 09/11/22 04:27 97.4 F L 85 16 163/97 98 09/11/22 01:37 81 16 09/10/22 23:22 97.5 F L 81 16 164/84 96 09/10/22 20:06 78 16 09/10/22 20:05 97.4 F L 78 16 154/96 97 09/10/22 16:00 98.0 F 76 16 145/89 96 09/10/22 14:00 90 16 09/10/22 12:00 90 16 149/83 96 09/10/22 08:56 97 09/10/22 08:00 97.9 F 78 16 166/85 97 Intake and Output 09/10/22 09/11/22 09/11/22 22:59 06:59 14:59 Intake Total 220 Balance 220 Intake: Oral 220 Other: Voiding Method Toilet Toilet # Voids 1 1 Weight 71 kg Results 09/08/22 16:55 09/08/22 16:55 Current Medications Generic Name Dose Route Start Last Admin Trade Name Freq PRN Reason Stop Dose Admin Apixaban 2.5 mg 09/11/22 09:00 Apixaban 5 Mg Tab PO BID MAGDALENE Protocol Aspirin 81 mg 09/10/22 09:00 09/10/22 08:35 Aspirin 81 Mg PO 81 mg DAILY MAGDALENE Administration Atorvastatin Calcium 40 mg 09/09/22 09:00 09/10/22 08:35 Atorvastatin 40 Mg Tab PO 40 mg DAILY MAGDALENE Administration Clopidogrel Bisulfate 75 mg 09/09/22 09:00 09/10/22 08:35 Clopidogrel 75 Mg Tab PO 75 mg DAILY MAGDALENE Administration Dextrose/Water 25 ml 09/09/22 08:42 Dextrose 50% Syringe 50 Ml IVP PER PROTOCOL PRN Hypoglycemia Protocol Dextrose/Water 50 ml 09/09/22 08:42 Dextrose 50% Syringe 50 Ml IVP PER PROTOCOL PRN Hypoglycemia Protocol Docusate Sodium 100 mg 09/09/22 00:00 09/10/22 23:23 Docusate 100 Mg Cap PO 100 mg Q8HR MAGDALENE Administration Dorzolamide HCl 1 drops 09/09/22 09:00 09/10/22 21:15 Dorzolamide Hcl 2% Drops 10 Ml Btl BOTH EYES 1 drops BID MAGDALENE Administration Famotidine 20 mg 09/08/22 21:00 09/10/22 21:15 Famotidine 20 Mg Tab PO 20 mg BID MAGDALENE Administration Sodium Chloride 1,000 mls @ 20 mls/hr 09/08/22 20:45 09/10/22 21:08 Saline 0.9% IV Not Given .Q24H MAGDALENE Insulin Aspart 0 unit 09/09/22 12:30 09/11/22 07:09 Insulin Aspart (Novolog) 100 Unit/Ml Vial SQ 1 unit ACHS MAGDALENE Administration Protocol Latanoprost 1 drops 09/09/22 21:00 09/10/22 21:16 Latanoprost 0.005% Ophth Drops 2.5 Ml Btl BOTH EYES 1 drops HS MAGDALENE Administration Metoprolol Tartrate 25 mg 09/11/22 09:00 Metoprolol Tartrate 25 Mg Tab PO BID MAGDALENE Pantoprazole Sodium 40 mg 09/09/22 09:00 09/10/22 08:35 Pantoprazole 40 Mg/10 Ml Vial IVP 40 mg DAILY MAGDALENE Administration Intake and Output 09/10/22 09/11/22 09/11/22 22:59 06:59 14:59 Intake Total 220 Balance 220 Intake: Oral 220 Other: Voiding Method Toilet Toilet # Voids 1 1 Weight 71 kg 09/08/22 16:55 09/08/22 16:55
[2022-09-11] MEDS: FAMOTIDINE 20 MG TAB PO SCH (08:36)
[2022-09-11] MEDS: DOCUSATE 100 MG CAP PO SCH (08:36)
[2022-09-11] MEDS: ATORVASTATIN 40 MG TAB PO SCH (08:37)
[2022-09-11] MEDS: CLOPIDOGREL 75 MG TAB PO SCH (08:37)
[2022-09-11] MEDS: PANTOPRAZOLE 40 MG/10 ML VIAL IVP SCH (08:37)
[2022-09-11] MEDS: DORZOLAMIDE HCL 2% DROPS 10 ML BTL BOTH EYES SCH (08:42)
[2022-09-11] MEDS ORDERED: APIXABAN 2.5 MG TABLET PO SCH (09:00)
[2022-09-11] MEDS ORDERED: METOPROLOL TARTRATE 25 MG TAB PO SCH (09:00)
[2022-09-11 09:30] VITALS: BP 124/75; PULSE 76; RESP 20; TEMP 98
[2022-09-11 10:13] LABS: Basophils % (A) 1 %; Eosinophils # (A) 0.1 k/uL (0-0.7); Eosinophils % (A) 2 %; HCT 41.6 % (34.0-46.0); HGB 13.6 gm/dL (11.4-16.0); Lymphocytes # (A) 1.8 k/uL (1.0-4.8); Lymphocytes % (A) 26 %; MCH 30.9 pg (25.0-35.0); MCHC 32.7 g/dL (31.0-37.0); MCV 94.6 fL (80.0-100.0); Mean Platelet Volume 8.4; Monocytes # (A) 0.4 k/uL (0-1.0); Monocytes % (A) 5 %; Neutrophils # (A) 4.6 k/uL (1.3-7.7); Neutrophils % (A) 65 %; Platelet Count 169 k/uL (150-450); RBC 4.39 m/uL (3.80-5.40); RDW 12.9 % (11.5-15.5)
[2022-09-11 10:28] LABS: African American GFR (CKD) >90 (>60 ml/min/1.73 sqM); Anion Gap 11 mmol/L; Blood Urea Nitrogen 14 mg/dL (7-17); Carbon Dioxide 22 mmol/L (22-30); Chloride 107 mmol/L (98-107); Glucose 157 mg/dL (74-99); Non-African American GFR(CKD) 82 (>60 ml/min/1.73 sqM); Potassium 4.1 mmol/L (3.5-5.1); Sodium 140 mmol/L (137-145)
[2022-09-11 12:06] LABS: Glucose,Whole Blood 182 mg/dL (70-110)
--- NOTE | 2022-09-11 13:03 | P.PN ---
Subjective Progress Note Date: 09/10/22 Patient was seen for follow-up. Patient's family members were also present. Patient is laying comfortably in the bed. Appears to have somewhat flat affect. She does smile sometimes. No new symptoms. Her speech has much improved. Speech therapy has seen the patient. Patient's 2 daughters and son were present. Discussed in detail about all the test results. Objective - Vital Signs Vital signs: Vital Signs Temp 98.0 F 09/10/22 16:00 Pulse 76 09/10/22 16:00 Resp 16 09/10/22 16:00 BP 145/89 09/10/22 16:00 Pulse Ox 96 09/10/22 16:00 FiO2 Intake & Output 09/09/22 09/10/22 09/10/22 18:59 06:59 18:59 Intake Total 936 20 660 Output Total 118 Balance 936 -98 660 Weight 69 kg Intake: IV 20 Invasive Line 2 20 Oral 936 660 Output: Urine 118 Other: Voiding Method Toilet Toilet Toilet # Voids 4 1 # Bowel Movements 1 - Exam Patient's mental status, speech and language functions are normal. Muscle strength normal. No ataxia. - Labs CBC & Chem 7: 09/11/22 08:53 09/11/22 08:53 Labs: Abnormal Lab Results - Last 24 Hours (Table) 09/08/22 09/09/22 09/10/22 Range/Units 16:55 20:18 06:09 POC Glucose (mg/dL) 154 H 144 H (70-110) mg/dL Hemoglobin A1c 6.8 H (0.0-6.0) % 09/10/22 09/10/22 Range/Units 12:06 17:01 POC Glucose (mg/dL) 150 H 142 H (70-110) mg/dL Hemoglobin A1c (0.0-6.0) % Assessment and Plan Assessment: * Subacute ischemic stroke involving left frontal region. * New onset atrial fibrillation * Hypertension * Elevated cardiac enzymes * Diabetes, recently diagnosed in June 2022, currently not on medication * Hyperlipidemia Plan: * MRI of the brain without contrast, confirmed evolving acute/subacute left frontal lobe infarct as suspected on recent CT. Background mild to moderate diffuse cerebral atrophy and moderate to advanced chronic small vessel ischemic changes. I personally reviewed MRI agree with the findings. * 2-D echo with bubble study revealed normal systolic function. Concentric LVH with EF 55-60%. Aortic sclerosis with no stenosis and mild insufficiency. The aortic valve is poorly visualized. Thickened mitral valve leaflets with mild to moderate MR. Left atrium is severely increased in volume. Recommend cardiology consultation for abnormal 2-D echo, elevated cardiac enzymes and embolic stroke. Patient also has developed new onset atrial fibrillation. * CTA head and neck showed: No evidence of dissection of the cervical internal carotid arteries or vertebral arteries or any evidence of significant stenosis at the carotid bifurcations. No evidence of intracranial high-grade stenosis or intracranial aneurysm. * Fasting a.m. lipid panel cholesterol 217, LDL 149, HDL 46 and triglycerides 107. Agree with starting Lipitor 40 mg daily. * Hemoglobin A1c 7.8 on 07/02/2022. Patient currently not on any medication for diabetes. Repeat A1c pending. Recommend optimize control of diabetes to target A1c <7.0 * Optimize control of blood pressure to target <130/80. * Patient probably will be started on anticoagulation with Eliquis. Antiplatelet agent not necessary with Eliquis, unless indicated from cardiac standpoint. * Telemetry monitoring patient has developed new onset atrial fibrillation, likely the cause of CVA. * Neurologically clear, if cleared by cardiology. Discussed with patient's children in detail.
[2022-09-12] MEDS ORDERED: FAMOTIDINE 20 MG TAB PO SCH (09:00)
--- NOTE | 2022-09-15 06:35 | P.DS ---
Providers Date of admission: 09/08/22 20:44 Expected date of discharge: 09/11/22 Attending physician: Delio Garcia Consults: 09/08/22 20:45 Consult Physician Urgent Consulting Provider: Hue Goss Consult Reason/Comments: acute ischemic stroke Do you want consulting provider notified?: Yes 09/10/22 12:47 Consult Physician Urgent Consulting Provider: Zuhair Bermudez Consult Reason/Comments: abn. echo, elev trops, CVA Do you want consulting provider notified?: Yes Primary care physician: Delio Garcia Hospital Course: Final diagnosis 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 Hypertension Hyperlipidemia Diabetes mellitus reported new diagnosis as of June 2022, controlled on diet only. GI prophylaxis, DVT prophylaxis Discharge disposition Patient is being discharged in a stable condition with guarded prognosis to home. Patient will follow-up with Dr. Garcia in the outpatient setting upon discharge. Patient is to follow-up with cardiology as well as neurology outpatient as scheduled. Total time taken is greater than 35 minutes. Hospital course This is a 87-year-old female who was recently admitted with CVA versus TIA symptoms and found to have subacute left frontal lobe inferior C VA. Patient underwent serological workup including cardiology consultation for abnormal echo and patient being started on anticoagulation and continue with statin therapy. Patient will need close outpatient follow-up with neurology as well as cardiology and has been cleared by consultations for discharge today. Please refer to other consultation notes for further HPI. Patient and family would like to go home today. Currently no reports of chest pain, shortness of breath, or palpitations. Patient is afebrile. No reports of nausea or vomiting and patient is tolerating diet. Patient will be discharged home today. Physical exam: Gen: This is a 87 old female who is awake, alert and oriented 2, well- developed, well-nourished HEENT: Head is atraumatic, normocephalic. Pupils equal, round. Sclerae is anicteric. NECK: Supple. No JVD. No lymphadenopathy. No thyromegaly. LUNGS: Clear to auscultation. No wheezes or rhonchi. No intercostal retractions. HEART: Regular rate and rhythm. No murmur. ABDOMEN: Soft. Bowel sounds are present. No masses. No tenderness. EXTREMITIES: No pedal edema. No calf tenderness. NEUROLOGICAL: Patient is awake, alert and oriented x3. Cranial nerves 2 through 12 are grossly intact. Please refer to medication reconciliation sheet for a list of medications. The impression and plan of care has been dictated by Lashanda Ruiz, Nurse Practitioner as directed. Dr. Dannie MD I have performed a history and examination and MDM of this patient, discussed the same with the dictator, and agree with the dictator's assessment and plan as written ,documented as a scribe. Based on total visit time, I have performed more than 50% of the visit. Patient Condition at Discharge: Fair Plan - Discharge Summary Discharge Rx Participant: No New Discharge Prescriptions: New Apixaban [Eliquis] 2.5 mg PO BID #60 tab Metoprolol Tartrate [Lopressor] 25 mg PO BID #60 tab Atorvastatin [Lipitor] 40 mg PO DAILY #30 tab Clopidogrel [Plavix] 75 mg PO DAILY #30 tab Pantoprazole Sodium [Protonix] 40 mg PO DAILY #30 tab Continue Latanoprost/Pf [Latanoprost 0.005% Eye Drop] 1 drop BOTH EYES HS Dorzolamide HCl/Pf [Dorzolamide 2% Eye Drop] 1 drop BOTH EYES BID Discontinued Metoprolol Succinate (ER) [Toprol XL] 50 mg PO DAILY Discharge Medication List Dorzolamide HCl/Pf [Dorzolamide 2% Eye Drop] 1 drop BOTH EYES BID 09/08/22 [History] Latanoprost/Pf [Latanoprost 0.005% Eye Drop] 1 drop BOTH EYES HS 09/08/22 [History] Apixaban [Eliquis] 2.5 mg PO BID #60 tab 09/11/22 [Rx] Atorvastatin [Lipitor] 40 mg PO DAILY #30 tab 09/11/22 [Rx] Clopidogrel [Plavix] 75 mg PO DAILY #30 tab 09/11/22 [Rx] Metoprolol Tartrate [Lopressor] 25 mg PO BID #60 tab 09/11/22 [Rx] Pantoprazole Sodium [Protonix] 40 mg PO DAILY #30 tab 09/11/22 [Rx] Follow up Appointment(s)/Referral(s): Zuhair Bermudez MD [STAFF PHYSICIAN] - 2 Weeks (call office when open to make follow up appointment date and time) Delio Garcia DO [Primary Care Provider] - 1-2 days (please call office when open to make follow up appointment date and time) Andrew Ventura DO [STAFF PHYSICIAN] - 1 Week (please call office when open to make follow up appointment date and time) Patient Instructions/Handouts: A-fib (Atrial Fibrillation) (DC), Heart Healthy Diet (DC), Ischemic Stroke (GEN), Safe Use of Anticoagulants (DC) Activity/Diet/Wound Care/Special Instructions: diet cardiac act limited till f/u f/u cardio as advised Discharge Disposition: HOME WITH HOME HEALTH SERVICES
== END 2022-09-11 13:21 | disposition home health service (06) | DRG 66 ==
LOC: EC 16:05 → 3SCARD 20:44
PROVIDERS: ADMIT Family Medicine; ATTEND Family Medicine
DX: I63.89 Other cerebral infarction (principal); R77.8 Other specified abnormalities of plasma proteins; E78.00 Pure hypercholesterolemia, unspecified; R47.01 Aphasia; E78.5 Hyperlipidemia, unspecified; E11.9 Type 2 diabetes mellitus without complications; R29.810 Facial weakness; I10 Essential (primary) hypertension; I48.0 Paroxysmal atrial fibrillation; J44.9 Chronic obstructive pulmonary disease, unspecified; Z85.3 Personal history of malignant neoplasm of breast; Z90.11 Acquired absence of right breast and nipple
CPT/HCPCS: 36415; 70450; 70496; 70498; 70551; 71046; 80048; 80053; 80061; 81001; 83036; 84484; 85025; 93005; 93306; 94760

== ENCOUNTER → 2023-07-01 | Outpatient (CLI) | payer MEDICARE ==
[2023-07-02 02:55] LABS: T4, Free (Free Thyroxine) 1.19 ng/dL (0.80-1.80)
== END | disposition home or self-care (01) ==
LOC: LABWHC1 15:31
PROVIDERS: ATTEND Psychiatry & Neurology Neurology
DX: R41.3 Other amnesia (principal)
CPT/HCPCS: 36415; 82306; 82607; 84207; 84439; 84443

== ENCOUNTER 2024-09-08 13:30 | Emergency (ER) | payer MEDICARE ==
--- NOTE | 2024-09-08 14:12 | ED ---
Recheck HPI - General Source: patient, RN notes reviewed Mode of arrival: ambulatory Limitations: no limitations <Avani Goodman - Last Filed: 09/08/24 14:08> - History of Present Illness MD Complaint: other (Abnormal blood pressure) -: unknown Returns Today for: other Context: planned re-check Associated Symptoms: none Treatments Prior to Arrival: other (0) <Doyle Plata - Last Filed: 09/16/24 18:05> - General Chief Complaint: Recheck/Abnormal Lab/Rx Stated Complaint: Irreg BP Time Seen by Provider: 09/08/24 14:08 - History of Present Illness Initial Comments: Quick [id number] female presenting for high blood pressure. Diastolic at home blood pressure was 192/91. Patient is currently asymptomatic. Denies chest pain, shortness of breath, abdominal pain, headaches. Denies focal weakness or slurred speech. Patient takes metoprolol, amlodipine, and Eliquis. (Avani Goodman) This is an 89-year-old female to ER for elevated blood pressure. Otherwise asymptomatic has no complaints patient took blood pressure medication prior to arrival no chest pain no shortness of breath no headache (Doyle Plata) - Related Data Home Medications Medication Instructions Recorded Confirmed Latanoprost/Pf [Latanoprost 0.005% 1 drop BOTH EYES HS 09/08/22 09/08/24 Eye Drop] Atorvastatin [Lipitor] 40 mg PO HS 09/08/24 09/08/24 Dorzolamide 2% [Trusopt 2%] 1 drops BOTH EYES BID 09/08/24 09/08/24 amLODIPine [Norvasc] 2.5 mg PO DAILY 09/08/24 09/08/24 Previous Rx's Medication Instructions Recorded Apixaban [Eliquis] 2.5 mg PO BID #60 tab 09/11/22 Metoprolol Tartrate [Lopressor] 25 mg PO BID #60 tab 09/11/22 Allergies Allergy/AdvReac Type Severity Reaction Status Date / Time No Known Allergies Allergy Verified 09/08/24 18:04 Review of Systems ROS Other: All systems not noted in ROS Statement are negative. <Avani Goodman - Last Filed: 09/08/24 14:08> ROS Other: All systems not noted in ROS Statement are negative. <Doyle Plata - Last Filed: 09/16/24 18:05> ROS Statement: Those systems with pertinent positive or pertinent negative responses have been documented in the HPI. Past Medical History Past Medical History: Cancer, CVA/TIA, Hypertension History of Any Multi-Drug Resistant Organisms: None Reported Additional Past Surgical History / Comment(s): rt masectomy Past Anesthesia/Blood Transfusion Reactions: No Reported Reaction Past Psychological History: No Psychological Hx Reported Smoking Status: Never smoker Past Alcohol Use History: None Reported Past Drug Use History: None Reported <Avani Goodman - Last Filed: 09/08/24 14:08> General Exam Limitations: no limitations <Avani Goodman - Last Filed: 09/08/24 14:08> General appearance: alert, in no apparent distress Head exam: Present: atraumatic, normocephalic, normal inspection Eye exam: Present: normal appearance, PERRL, EOMI. Absent: scleral icterus, conjunctival injection, periorbital swelling ENT exam: Present: normal exam, mucous membranes moist Neck exam: Present: normal inspection. Absent: tenderness, meningismus, lymphadenopathy Respiratory exam: Present: normal lung sounds bilaterally. Absent: respiratory distress, wheezes, rales, rhonchi, stridor Cardiovascular Exam: Present: regular rate, normal rhythm, normal heart sounds. Absent: systolic murmur, diastolic murmur, rubs, gallop, clicks GI/Abdominal exam: Present: soft, normal bowel sounds. Absent: distended, tenderness, guarding, rebound, rigid Extremities exam: Present: normal inspection, full ROM, normal capillary refill. Absent: tenderness, pedal edema, joint swelling, calf tenderness Back exam: Present: normal inspection Neurological exam: Present: alert, oriented X3, CN II-XII intact Psychiatric exam: Present: normal affect, normal mood Skin exam: Present: warm, dry, intact, normal color. Absent: rash <Doyle Plata - Last Filed: 09/16/24 18:05> - General Exam Comments Initial Comments: Visual Physical Exam Vital signs reviewed General: Well-appearing, nontoxic, no acute distress. Head: Normocephalic, atraumatic Eyes: PERRLA, EOMI ENT: Airway patent Chest: Nonlabored breathing Skin: No visual rash, normal skin tone Neuro: Alert and oriented 3 Musculoskeletal: No gross abnormalities (Avani Goodman) Course <Doyle Plata - Last Filed: 09/16/24 18:05> Vital Signs 09/08/24 09/08/24 09/08/24 13:39 18:00 19:02 Temperature 97.4 F L Pulse Rate 69 92 80 Respiratory 17 18 18 Rate Blood Pressure 192/91 205/95 180/85 O2 Sat by Pulse 97 98 98 Oximetry 09/08/24 21:08 Temperature 98.1 F Pulse Rate 85 Respiratory 16 Rate Blood Pressure 155/91 O2 Sat by Pulse 95 Oximetry - Reevaluation(s) Reevaluation #1: Medical record is reviewed (Doyle Plata) Reevaluation #2: Patient symptoms unchanged (Doyle Plata) Reevaluation #3: Patient informed of results questions answered (Doyle Plata) Reevaluation #4: Was pt. sent in by a medical professional or institution (, PA, HORTICULTURAL THERAPIST, urgent care, hospital, or care home...) When possible be specific @ -no Did you speak to anyone other than the patient for history (EMS, parent, family, police, friend...)? What history was obtained from this source @ -no Did you review nursing and triage notes (agree or disagree)? Why? @ -agree Are old charts reviewed (outside hosp., previous admission, EMS record, old EKG, old radiological studies, urgent care reports/EKG's, care home records)? Report findings @ -yes Differential Diagnosis (chest pain, altered mental status, abdominal pain women, abdominal pain men, vaginal bleeding, weakness, fever, dyspnea, syncope, headache, dizziness, GI bleed, back pain, seizure, CVA, palpatations, mental health, musculoskeletal)? @ -prior EKG interpreted by me (3pts min.). @ -yes X-rays interpreted by me (1pt min.). @ -yes negative for acute disease CT interpreted by me (1pt min.). @ -no U/S interpreted by me (1pt. min.). @ -no What testing was considered but not performed or refused? (CT, X-rays, U/S, labs)? Why? @ -none What meds were considered but not given or refused? Why? @ -none Did you discuss the management of the patient with other professionals (professionals i.e. , PA, HORTICULTURAL THERAPIST, lab, RT, psych nurse, social media marketing analyst, beauty sales advisor, teacher, chief compliance officer, rehabilitation caseworker)? Give summary @ -no Was smoking cessation discussed for >3mins.? @ -no Was critical care preformed (if so, how long)? @ -no Were there social determinants of health that impacted care today? How? (Homelessness, low income, unemployed, alcoholism, drug addiction, transportation, low edu. Level, literacy, decrease access to med. care, half-way, rehab)? @ -none Was there de-escalation of care discussed even if they declined (Discuss DNR or withdrawal of care, Hospice)? DNR status @ -no What co-morbidities impacted this encounter? (DM, HTN, Smoking, COPD, CAD, Cancer, CVA, ARF, Chemo, Hep., AIDS, mental health diagnosis, sleep apnea, morbid obesity)? @ -none Was patient admitted / discharged? Hospital course, mention meds given and route, prescriptions, significant lab abnormalities, going to OR and other pertinent info. @ -89 female for hypertension. No complaints no findings, patient given blood pressure medication can be discharged home Discharge Undiagnosed new problem with uncertain prognosis? @ -no Drug Therapy requiring intensive monitoring for toxicity (Heparin, Nitro, Insulin, Cardizem)? @ -no Were any procedures done? @ -no Diagnosis/symptom? @ -Hypertension Acute, or Chronic, or Acute on Chronic? @ -Acute Uncomplicated (without systemic symptoms) or Complicated (systemic symptoms)? @ -Complicated Side effects of treatment? @ -no Exacerbation, Progression, or Severe Exacerbation? @ -exacerbation Poses a threat to life or bodily function? How? (Chest pain, [place], [place], pneumonia, PE, COPD, DKA, ARF, appy, cholecystitis, CVA, Diverticulitis, Homicidal, Suicidal, threat to staff... and all critical care pts) @ -yes extremes of age (Doyle Plata) Medical Decision Making <Avani Goodman - Last Filed: 09/08/24 14:08> - Lab Data Result diagrams: 09/08/24 19:19 09/08/24 19:19 - EKG Data -: EKG Interpreted by Me - Radiology Data Radiology results: report reviewed (Chest x-ray is negative for acute disease), image reviewed <Doyle Plata - Last Filed: 09/16/24 18:05> - Medical Decision Making I completed the quick note portion of this chart signed Avani Goodman PA-C (Avani Goodman) 89 female for hypertension. No complaints no findings, patient given blood pressure medication can be discharged home (Doyle Plata) - Lab Data Lab Results 09/08/24 09/08/24 09/08/24 Range/Units 19:19 19:19 19:19 WBC 6.6 (3.8-10.6) k/uL RBC 4.79 (3.80-5.40) m/uL Hgb 14.2 (11.4-16.0) gm/dL Hct 42.3 (34.0-46.0) % MCV 88.4 (80.0-100.0) fL MCH 29.7 (25.0-35.0) pg MCHC 33.6 (31.0-37.0) g/dL RDW 13.3 (11.5-15.5) % Plt Count 159 (150-450) k/uL MPV 8.4 Neutrophils % 54 % Lymphocytes % 38 % Monocytes % 5 % Eosinophils % 1 % Basophils % 1 % Neutrophils # 3.5 (1.3-7.7) k/uL Lymphocytes # 2.5 (1.0-4.8) k/uL Monocytes # 0.3 (0-1.0) k/uL Eosinophils # 0.1 (0-0.7) k/uL Basophils # 0.1 (0-0.2) k/uL Sodium 139 (137-145) mmol/L Potassium 3.7 (3.5-5.1) mmol/L Chloride 101 (98-107) mmol/L Carbon Dioxide 28 (22-30) mmol/L Anion Gap 10 mmol/L BUN 9 (7-17) mg/dL Creatinine 0.62 (0.52-1.04) mg/dL Est GFR (CKD-EPI)AfAm >90 (>60 ml/min/1.73 sqM) Est GFR (CKD-EPI)NonAf 81 (>60 ml/min/1.73 sqM) Glucose 125 H (74-99) mg/dL Calcium 9.7 (8.4-10.2) mg/dL Total Bilirubin 1.2 (0.2-1.3) mg/dL AST 34 (14-36) U/L ALT 38 H (4-34) U/L Alkaline Phosphatase 80 (38-126) U/L Troponin I <0.012 (0.000-0.034) ng/mL Total Protein 6.9 (6.3-8.2) g/dL Albumin 4.4 (3.5-5.0) g/dL Disposition <Avani Goodman - Last Filed: 09/08/24 14:08> Is patient prescribed a controlled substance at d/c from ED?: No Time of Disposition: 20:00 <Doyle Plata - Last Filed: 09/16/24 18:05> Clinical Impression: Hypertension Disposition: HOME SELF-CARE Condition: Good Instructions (If sedation given, give patient instructions): Hypertension (ED) Referrals: Delio Garcia DO [Primary Care Provider] - 1-2 days
--- NOTE | 2024-09-08 14:56 | XR ---
EXAMINATION TYPE: XR chest 2V DATE OF EXAM: 09/08/2024 2:41 PM COMPARISON: 09/08/2022 CLINICAL INDICATION: Female, 89 years old with history of Hypertension: Shortness of breath TECHNIQUE: XR chest 2V views of the chest are obtained. FINDINGS: Scattered senescent parenchymal changes noted. Hyperinflation compatible with COPD. No evidence for infiltrate. No evidence for atelectasis. Heart size is stable. Mediastinal structures are stable and grossly unremarkable. No evidence for hilar prominence. Degenerative changes dorsal spine. IMPRESSION: 1. No evidence for acute pulmonary disease. [facility], , 09/08/2024 2:54 PM
[2024-09-08 19:28] LABS: Basophils # (A) 0.1 k/uL (0-0.2); Basophils % (A) 1 %; Eosinophils # (A) 0.1 k/uL (0-0.7); Eosinophils % (A) 1 %; HCT 42.3 % (34.0-46.0); HGB 14.2 gm/dL (11.4-16.0); Lymphocytes # (A) 2.5 k/uL (1.0-4.8); Lymphocytes % (A) 38 %; MCH 29.7 pg (25.0-35.0); MCHC 33.6 g/dL (31.0-37.0); MCV 88.4 fL (80.0-100.0); Mean Platelet Volume 8.4; Monocytes # (A) 0.3 k/uL (0-1.0); Monocytes % (A) 5 %; Neutrophils # (A) 3.5 k/uL (1.3-7.7); Neutrophils % (A) 54 %; Platelet Count 159 k/uL (150-450); RBC 4.79 m/uL (3.80-5.40); RDW 13.3 % (11.5-15.5); WBC 6.6 k/uL (3.8-10.6)
[2024-09-08 19:57] LABS: ALT 38 U/L (4-34); AST 34 U/L (14-36); African American GFR (CKD) >90 (>60 ml/min/1.73 sqM); Albumin 4.4 g/dL (3.5-5.0); Alkaline Phosphatase 80 U/L (38-126); Anion Gap 10 mmol/L; Blood Urea Nitrogen 9 mg/dL (7-17); Calcium 9.7 mg/dL (8.4-10.2); Carbon Dioxide 28 mmol/L (22-30); Chloride 101 mmol/L (98-107); Glucose 125 mg/dL (74-99); Non-African American GFR(CKD) 81 (>60 ml/min/1.73 sqM); Potassium 3.7 mmol/L (3.5-5.1); Sodium 139 mmol/L (137-145); Total Bilirubin 1.2 mg/dL (0.2-1.3); Total Protein 6.9 g/dL (6.3-8.2)
[2024-09-08] MEDS: LABETALOL 5 MG/ML VIAL MDV IVP STA (20:12)
[2024-09-08] MEDS: LABETALOL 5 MG/ML VIAL MDV IVP SCH (20:21)
[2024-09-08] MEDS: LABETALOL 5 MG/ML VIAL MDV IVP ONE (20:23)
[2024-09-08 21:13] VITALS: BP 155/91; PULSE 85; RESP 16; TEMP 98.1
== END 2024-09-08 21:15 | disposition home or self-care (01) ==
LOC: EC 13:30
DX: I10 Essential (primary) hypertension (principal); Z86.73 Personal history of transient ischemic attack (TIA), and cerebral infarction without residual deficits; Z79.899 Other long term (current) drug therapy
CPT/HCPCS: 36415; 93005; 80053; 84484; 85025; 71046; 99284; 96374; J1920